=== PATIENT | male | born 1975 | race Two or more races ===

== ENCOUNTER 2025-07-15 06:40 | Day surgery (SDC) | payer MEDICAID, SELFPAY ==
[2025-07-12 15:19] VITALS: BMI 27.8
[2025-07-15] VITALS (8 sets, daily range): BP systolic 104–135; BP diastolic 68–79; PULSE 54–67; RESP 10–17; TEMP 36.4–36.6; O2SAT 97–100; BMI 27.3
[2025-07-15] MEDS: SODIUM CHLORIDE 0.9% 500 ML 500 ML 20 ML IV (07:46)
[2025-07-15] MEDS: fentaNYL CIT INJ 50 mCg/ML AMP 2ML (ASD USE ONLY) IVP (07:46)
[2025-07-15] MEDS: MIDAZOLAM INJ 1 MG/ML VIAL 2 ML (ASD USE ONLY) 2 MG IVP (07:46)
--- NOTE | 2025-07-15 08:42 | SUR.PHASEII ---
0820 Pt more awake and alert. Via Turkmen speaker-pt denies pain or N/V. Abd remains soft. Keshia PO fluids. 0840 Pt assessment unchanged. No complaints. Amb with steady gait. Able to dress self. DC instructions given by BERNARDO HEALY. Both state understanding. Pt meets dc criteria-to home.
== END 2025-07-15 08:40 | disposition home or self-care (01) ==
PROVIDERS: PCP Family Medicine; Referring Provider Surgery; Visit Provider Surgery
PROC: 0DBE8ZX Excision of Large Intestine, Via Natural or Artificial Opening Endoscopic, Diagnostic (ICD-10-PCS; CPT 45380; principal; 2025-07-15 07:30)
DX: Z12.11 Encounter for screening for malignant neoplasm of colon (principal); K64.0 First degree hemorrhoids
CPT/HCPCS: 45378; A4649; J1200; J2250; J3010; J7999